=== PATIENT | male | born 1960 | race American Indian/Alaskan Native ===

== ENCOUNTER 2018-11-25 06:33 | Day surgery (SDC) | payer MEDICARE, MEDICAID ==
[~2018-11-25 06:33] MED LIST: Dextrose 5%-0.45% NaCl 1,000 ML IV SCH; Midazolam 1 MG/ML 2 ML SDV ONE; fentaNYL 100 MCG/2 ML SDV ONE
[2018-11-25] MEDS ORDERED: fentaNYL 100 MCG/2 ML SDV IV ONE ×3 (06:34→07:09)
[2018-11-25] MEDS ORDERED: Midazolam 1 MG/ML 2 ML SDV IV ONE ×6 (06:34→07:14)
[2018-11-25] MEDS ORDERED: Sodium Chloride 0.9% 10 ML Syringe FLUSH PRN (07:08)
[2018-11-25 10:44] VITALS: BP 116/73
--- NOTE | 2018-11-25 13:46 | OR ---
DATE: 11/25/2018 PROCEDURES: Total colonoscopy and cold snare polypectomy. INSTRUMENT USED: PCF-H190DL Olympus video colonoscope. PREMEDICATIONS: Fentanyl 100 mcg intravenous and Versed 4 mg intravenous. Nasal O2 cannula. The procedure was done under pulse oximetry, BP recording, and ekg monitor tech. INDICATION: The patient with previous colonic adenoma. Surveillance colonoscopic examination is done for detection of any polypoid lesions and removal, endoscopic hemostasis therapy if needed. DESCRIPTION OF PROCEDURE: Initial rectal exam showed some diffuse tenderness. Rigid anoscopy showed small internal hemorrhoids without bleeding from them. The colonoscope was passed with ease. Scattered diverticula were noted in the distal left colon along with some deformity. The scope was passed with ease up to the ileocecal area. Photographs were taken of the cecum showing diminutive benign-appearing polyp, cold snare polypectomy was done, the tissue was retrieved and sent for histopathology. No bleeding was noted from any of the visualized areas at the commencement of the examination. There was some amount of fecal material that had to be aspirated. Bowel preparation score, Florence scale 2. No stricture. No vascular ectasia. No large isolated ulceration seen. No evidence of diffuse inflammatory bowel disease in the form of friability, contact bleeding, or ulcerations. Probing the proximal sides of folds and flexures, using adequate distention and clearing up the stool material, withdrawal of the scope was made. [id number] time over 6 minutes. No bleeding was noted from any of the visualized areas at the completion of examination. IMPRESSION: 1. Internal hemorrhoids. 2. Diverticulosis. 3. Diminutive cecal polyp. The patient tolerated the procedure well. [facility] /[id number]
--- NOTE | 2018-11-26 08:30 | LETTER ---
11/25/2018 Trina Be MD [facility] [address] [place] [address] RE: RACHELLEJOSE : [address] Be: Mr. Jose Herbert Aggarwal had colonoscopic examination done this morning and he tolerated the procedure well. I herewith send a copy of the endoscopy note and photographs for your review. Thank you. Sincerely, [facility] /[id number]
== END 2018-11-25 09:40 | disposition home or self-care (01) ==
LOC: DL.ENDO 06:33
PROVIDERS: ATTEND Internal Medicine Gastroenterology
DX: Z12.11 Encounter for screening for malignant neoplasm of colon (principal); D12.0 Benign neoplasm of cecum; K64.8 Other hemorrhoids; K57.30 Diverticulosis of large intestine without perforation or abscess without bleeding; I10 Essential (primary) hypertension; E66.09 Other obesity due to excess calories; E78.5 Hyperlipidemia, unspecified
CPT/HCPCS: J2250; J3010; J7042

== ENCOUNTER 2020-11-16 01:45 | Emergency (ER) | payer MEDICARE, MEDICAID ==
[2020-11-16] MEDS ORDERED: Aspirin 81 MG Tab.Chew PO ONE (01:54)
[2020-11-16] MEDS ORDERED: Ondansetron 4 MG/2 ML SDV IVPUSH ONE (02:05)
--- NOTE | 2020-11-16 02:11 | EDM.PDOC ---
ED HPI GENERAL MEDICAL PROBLEM - General Stated Complaint: CHEST PAIN Time Seen by Provider: 11/16/20 02:00 Source of Information: Reports: Patient, RN History Limitations: Reports: No Limitations - History of Present Illness INITIAL COMMENTS - FREE TEXT/NARRATIVE: ED with c/o waking with chest pressure x 1 hour. Worse with movement. Denies fever, has had cold recently, loose cough, reports as chronic, Smoker. Past hx stent x 3. No sweating. No radiation of pain. Feels SOB. Etoh yesterday. nausea, no emesis. Received first COVID vaccine on 11/01/20. Mid-Sternal Chest Pain Score (Numeric/FACES): 6 - Related Data Allergies Allergy/AdvReac Type Severity Reaction Status Date / Time codeine Allergy Vomiting Verified 12/12/18 22:39 peach Allergy Swelling Verified 12/12/18 22:39 tramadol Allergy Dizziness Verified 12/12/18 22:39 Home Meds: Home Meds Aspirin [Ecotrin] 81 mg PO DAILY 11/03/13 [History] Atenolol [Tenormin] 50 mg PO BID 11/03/13 [History] Clotrimazole [Lotrimin AF 1% Crm] 30 gm TOP ASDIRECTED PRN 11/03/13 [History] Docusate Sodium [Colace] 100 mg PO BID PRN 11/03/13 [History] Famotidine [Pepcid] 20 mg PO BID 11/03/13 [History] metFORMIN [Glucophage] 1,000 mg PO BIDMEALS 11/03/13 [History] Acetaminophen 650 mg PO Q6HR PRN 08/12/14 [History] Albuterol Sulfate [Proair Hfa] 1 - 2 puff INH Q6HR PRN 08/20/17 [History] Loratadine 10 mg PO ASDIRECTED 08/20/17 [History] Losartan [Cozaar] 100 mg PO DAILY 08/20/17 [History] Tiotropium [Spiriva HandiHaler] 1 cap INH DAILY 08/20/17 [History] atorvaSTATin [Lipitor] 10 mg PO BEDTIME 08/20/17 [History] Tamsulosin [Flomax] 0.8 mg PO BEDTIME 08/21/17 [History] hydroCHLOROthiazide [Hydrochlorothiazide] 50 mg PO DAILY 02/23/19 [History] Albuterol [Proventil Neb Soln] 3 ml INH Q6HR PRN 08/09/20 [History] Cholecalciferol (Vitamin D3) [Vitamin D3] 1,000 units PO DAILY 08/09/20 [History] Insulin Detemir [Levemir] 35 units INJECT BID 08/09/20 [History] Liraglutide [Victoza] 1.2 ml INJECT DAILY 08/09/20 [History] Westview-3/DHA/Epa/Fish Oil [Westview-3 Fish Oil 1,000 MG Sfgl] 1,000 mg PO DAILY 08/09/20 [History] DULoxetine [Cymbalta] 60 mg PO DAILY 08/10/20 [History] Empagliflozin [Jardiance] 25 mg PO DAILY 08/10/20 [History] Past Medical History HEENT History: Reports: Impaired Vision Other HEENT History: upper dentures. 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 ED EXAM, GENERAL - Physical Exam Exam: See Below Exam Limited By: No Limitations General Appearance: Alert, Anxious, Mild Distress, Moderate Distress (movement or light palpation of upper chest) Eye Exam: Bilateral Eye: EOMI Ears: Hearing Grossly Normal Nose: Normal Inspection Throat/Mouth: Normal Voice Head: Atraumatic, Normocephalic Neck: Normal Inspection Respiratory/Chest: No Respiratory Distress, Decreased Breath Sounds, Rhonchi (right when flat clears with HOB elevated) Cardiovascular: Normal Peripheral Pulses, Regular Rate, Rhythm. No: No Edema (1+) GI/Abdominal: Normal Bowel Sounds, Soft Back Exam: Normal Inspection Extremities: Normal Inspection Neurological: Alert, Oriented, Normal Cognition Psychiatric: Normal Affect, Anxious Skin Exam: Warm, Dry, Intact, Normal Color Course - Vital Signs Last Recorded V/S: Last Vital Signs Temp 98.7 F 11/16/20 02:02 Pulse 94 02/16/21 02:02 Resp 20 11/16/20 02:02 BP 107/62 11/16/20 02:54 Pulse Ox 94 L 11/16/20 02:02 - Orders/Labs/Meds Labs: Laboratory Tests 11/16/20 11/16/20 11/16/20 Range/Units 02:01 02:01 02:01 WBC 10.5 H (5.0-10.0) 10^3/uL RBC 4.90 (4.6-6.2) 10^6/uL Hgb 14.5 (14.0-18.0) g/dL Hct 43.1 (40.0-54.0) % MCV 88.0 (80-100) fL MCH 29.6 (27.0-34.0) pg MCHC 33.6 (33.0-35.0) g/dL Plt Count 217 (150-450) 10^3/uL Neut % (Auto) 64.4 (42.2-75.2) % Lymph % (Auto) 24.6 (20.5-50.1) % [place] % (Auto) 8.8 H (2-8) % Eos % (Auto) 1.7 (1.0-3.0) % Baso % (Auto) 0.5 (0.0-1.0) % Add Manual Diff Yes Neutrophils % (Manual) 65 (42-75) % Band Neutrophils % 2 % Lymphocytes % (Manual) 24 (20-50) % Monocytes % (Manual) 7 (2-8) % Eosinophils % (Manual) 2 (1-3) % PT (9.0-12.0) SEC INR (0.9-1.2) D-Dimer, Quantitative 179 (0-400) ng/mL Sodium 140 (136-145) mmol/L Potassium 3.4 L (3.5-5.1) mmol/L Chloride 100 (98-107) mmol/L Carbon Dioxide 28 (21-32) mmol/L Anion Gap 15.4 H (7-13) mEq/L BUN 14 (7-18) mg/dL Creatinine 0.91 (0.70-1.30) mg/dL Est Cr Clr Drug Dosing 86.90 mL/min Estimated GFR (MDRD) > 60 BUN/Creatinine Ratio 15.4 (No establ ref range) Glucose 167 H (74-99) mg/dL Lactic Acid (0.4-2.0) mmol/L Calcium 8.9 (8.5-10.1) mg/dL Total Bilirubin 0.3 (0.2-1.0) mg/dL AST 50 H (15-37) U/L ALT 53 (16-63) U/L Alkaline Phosphatase 49 (46-116) U/L Troponin I 0.245 H* (0.000-0.056) ng/mL C-Reactive Protein 2.3 H (0.0-0.9) mg/dL B-Natriuretic Peptide (0-100) pg/ml Total Protein 7.4 (6.4-8.2) g/dL Albumin 3.1 L (3.4-5.0) g/dL Globulin 4.3 Albumin/Globulin Ratio 0.72 Amylase 32 (25-115) U/L Lipase 121 (73-393) U/L Ethyl Alcohol 17 (0) mg/dL Influenza Type A RNA (NEGATIVE) Influenza Type B RNA (NEGATIVE) SARS-CoV-2 RNA (PIETER) (NEGATIVE) 11/16/20 11/16/20 11/16/20 Range/Units 02:01 02:01 02:01 WBC (5.0-10.0) 10^3/uL RBC (4.6-6.2) 10^6/uL Hgb (14.0-18.0) g/dL Hct (40.0-54.0) % MCV (80-100) fL MCH (27.0-34.0) pg MCHC (33.0-35.0) g/dL Plt Count (150-450) 10^3/uL Neut % (Auto) (42.2-75.2) % Lymph % (Auto) (20.5-50.1) % [place] % (Auto) (2-8) % Eos % (Auto) (1.0-3.0) % Baso % (Auto) (0.0-1.0) % Add Manual Diff Neutrophils % (Manual) (42-75) % Band Neutrophils % % Lymphocytes % (Manual) (20-50) % Monocytes % (Manual) (2-8) % Eosinophils % (Manual) (1-3) % PT 9.4 (9.0-12.0) SEC INR 1.0 (0.9-1.2) D-Dimer, Quantitative (0-400) ng/mL Sodium (136-145) mmol/L Potassium (3.5-5.1) mmol/L Chloride (98-107) mmol/L Carbon Dioxide (21-32) mmol/L Anion Gap (7-13) mEq/L BUN (7-18) mg/dL Creatinine (0.70-1.30) mg/dL Est Cr Clr Drug Dosing mL/min Estimated GFR (MDRD) BUN/Creatinine Ratio (No establ ref range) Glucose (74-99) mg/dL Lactic Acid 2.8 H* (0.4-2.0) mmol/L Calcium (8.5-10.1) mg/dL Total Bilirubin (0.2-1.0) mg/dL AST (15-37) U/L ALT (16-63) U/L Alkaline Phosphatase (46-116) U/L Troponin I (0.000-0.056) ng/mL C-Reactive Protein (0.0-0.9) mg/dL B-Natriuretic Peptide 63 (0-100) pg/ml Total Protein (6.4-8.2) g/dL Albumin (3.4-5.0) g/dL Globulin Albumin/Globulin Ratio Amylase (25-115) U/L Lipase (73-393) U/L Ethyl Alcohol (0) mg/dL Influenza Type A RNA (NEGATIVE) Influenza Type B RNA (NEGATIVE) SARS-CoV-2 RNA (PIETER) (NEGATIVE) 11/16/20 Range/Units 02:10 WBC (5.0-10.0) 10^3/uL RBC (4.6-6.2) 10^6/uL Hgb (14.0-18.0) g/dL Hct (40.0-54.0) % MCV (80-100) fL MCH (27.0-34.0) pg MCHC (33.0-35.0) g/dL Plt Count (150-450) 10^3/uL Neut % (Auto) (42.2-75.2) % Lymph % (Auto) (20.5-50.1) % [place] % (Auto) (2-8) % Eos % (Auto) (1.0-3.0) % Baso % (Auto) (0.0-1.0) % Add Manual Diff Neutrophils % (Manual) (42-75) % Band Neutrophils % % Lymphocytes % (Manual) (20-50) % Monocytes % (Manual) (2-8) % Eosinophils % (Manual) (1-3) % PT (9.0-12.0) SEC INR (0.9-1.2) D-Dimer, Quantitative (0-400) ng/mL Sodium (136-145) mmol/L Potassium (3.5-5.1) mmol/L Chloride (98-107) mmol/L Carbon Dioxide (21-32) mmol/L Anion Gap (7-13) mEq/L BUN (7-18) mg/dL Creatinine (0.70-1.30) mg/dL Est Cr Clr Drug Dosing mL/min Estimated GFR (MDRD) BUN/Creatinine Ratio (No establ ref range) Glucose (74-99) mg/dL Lactic Acid (0.4-2.0) mmol/L Calcium (8.5-10.1) mg/dL Total Bilirubin (0.2-1.0) mg/dL AST (15-37) U/L ALT (16-63) U/L Alkaline Phosphatase (46-116) U/L Troponin I (0.000-0.056) ng/mL C-Reactive Protein (0.0-0.9) mg/dL B-Natriuretic Peptide (0-100) pg/ml Total Protein (6.4-8.2) g/dL Albumin (3.4-5.0) g/dL Globulin Albumin/Globulin Ratio Amylase (25-115) U/L Lipase (73-393) U/L Ethyl Alcohol (0) mg/dL Influenza Type A RNA Negative (NEGATIVE) Influenza Type B RNA Negative (NEGATIVE) SARS-CoV-2 RNA (PIETER) Negative (NEGATIVE) Meds: Medications Discontinued Medications Generic Name Dose Route Start Last Admin Trade Name Freq PRN Reason Stop Dose Admin Aspirin 324 mg 11/16/20 01:54 11/16/20 02:26 Aspirin PO 11/16/20 01:55 324 mg ONETIME ONE Administration Clopidogrel Bisulfate 300 mg 11/16/20 02:54 11/16/20 02:57 Plavix PO 11/16/20 02:55 300 mg ONETIME ONE Administration Heparin Sodium (Porcine) 4,000 units 11/16/20 02:54 11/16/20 03:03 Heparin Sodium IVPUSH 11/16/20 02:55 4,000 units .BOLUS ONE Administration Sodium Chloride 1,000 mls @ 25 mls/hr 11/16/20 02:37 11/16/20 02:41 Normal Saline IV 11/17/20 18:36 25 mls/hr .BOLUS ONE Administration Heparin Sodium/Sodium Chloride 25,000 units in 500 mls @ 31.701 mls/hr 11/16/20 03:00 11/16/20 03:03 Heparin 25,000 Units In 1/2 Ns 500 Ml IV 12 units/kg/hr TITRATE CECY 31.701 mls/hr Administration Protocol 12 UNITS/KG/HR Nitroglycerin 0.4 mg 11/16/20 02:37 11/16/20 02:43 Nitrostat SL 11/16/20 02:38 0.4 mg ONETIME ONE Administration Nitroglycerin 0.4 mg 11/16/20 02:49 11/16/20 02:54 Nitrostat SL 11/16/20 02:50 0.4 mg ONETIME ONE Administration Ondansetron HCl 4 mg 11/16/20 02:05 11/16/20 02:30 Zofran IVPUSH 11/16/20 02:06 4 mg ONETIME ONE Administration - Re-Assessments/Exams Free Text/Narrative Re-Assessment/Exam: 11/16/20 02:59 Anterior chest pain improving with Nitro 10/10 to 4-5/[address] Troy Palmer. Accepting patient . Tx via [facility]. Departure - Departure Time of Disposition: 03:30 Disposition: DC/Tfer to Acute Hospital 02 Reason for Transfer *Q: Other Condition: Fair Clinical Impression: NSTEMI (non-ST elevated myocardial infarction), History of CVA (cerebrovascular accident), IDDM (insulin dependent diabetes mellitus), Hx of Saldivar's palsy, CVD (cardiovascular disease), Hx of heart artery stent Forms: ED Department Discharge
[2020-11-16 02:13] VITALS: PULSE 94
[2020-11-16 02:33] LABS: ANION GAP 15.4 mEq/L (7-13); CHLORIDE,CL 100 mmol/L (98-107); SODIUM,NA 140 mmol/L (136-145)
--- NOTE | 2020-11-16 02:36 | CR ---
PROCEDURE INFORMATION: Exam: XR Chest, 1 View Exam date and time: 11/16/2020 2:16 AM Age: 60 years old Clinical indication: Chest pain TECHNIQUE: Imaging protocol: XR of the chest Views: 1 view. COMPARISON: No relevant prior studies available. FINDINGS: Lungs: Unremarkable. No consolidation. Pleural spaces: Unremarkable. No pleural effusion. No pneumothorax. Heart/Mediastinum: Unremarkable. No cardiomegaly. Bones/joints: Unremarkable. IMPRESSION: No acute findings.
[2020-11-16] MEDS ORDERED: Nitroglycerin 0.4 MG Tab.SL SL ONE ×2 (02:37→02:49)
[2020-11-16] MEDS ORDERED: Sodium Chloride 0.9% 1,000 ML IV ONE (02:37)
[2020-11-16] MEDS ORDERED: Heparin Sodium 5,000 Units/ML Vial IVPUSH ONE (02:54)
[2020-11-16] MEDS ORDERED: Clopidogrel 75 MG Tab PO ONE (02:54)
[2020-11-16 02:55] VITALS: BP 107/62
[2020-11-16 02:56] LABS: CORONAVIRUS COVID-19 NAA NEGATIVE (NEGATIVE)
[2020-11-16] MEDS ORDERED: Heparin Sodium/0.45% NaCl 25,000 UNITS/500 ML BAG IV SCH (03:00)
== END 2020-11-16 03:32 ==
LOC: DL.ED 01:45
DX: I21.4 Non-ST elevation (NSTEMI) myocardial infarction (principal); I25.10 Atherosclerotic heart disease of native coronary artery without angina pectoris; E11.9 Type 2 diabetes mellitus without complications; I10 Essential (primary) hypertension; F17.200 Nicotine dependence, unspecified, uncomplicated; Z86.73 Personal history of transient ischemic attack (TIA), and cerebral infarction without residual deficits; Z95.5 Presence of coronary angioplasty implant and graft; Z79.4 Long term (current) use of insulin; Z79.899 Other long term (current) drug therapy; Z88.5 Allergy status to narcotic agent; Z91.018 Allergy to other foods; Z20.822 Contact with and (suspected) exposure to COVID-19
CPT/HCPCS: 0240U; 36415; 71045; 80053; 80307; 82150; 83605; 83690; 83880; 84484; 85025; 85379; 85610; 86140; 87040; 93005; 96365; 96375; 99285; A9270; J1644; J2405; J7030

== ENCOUNTER 2023-05-11 13:21 | Emergency (ER) | payer MEDICARE, MEDICAID ==
[~2023-05-11 13:21] MED LIST changes: -Dextrose 5%-0.45% NaCl 1,000 ML IV SCH; -Midazolam 1 MG/ML 2 ML SDV ONE; +Sodium Chloride 0.9% 10 ML Syringe FLUSH PRN; -fentaNYL 100 MCG/2 ML SDV ONE
[2023-05-11 13:32] LABS: BASOPHILS PERCENT AUTO 0.3 % (0.0-1.0); EOSINOPHILS PERCENT AUTO 2.8 % (1.0-3.0); HEMOGLOBIN 14.8 g/dL (14.0-18.0); LYMPHOCYTES PERCENT AUTO 15.3 % (20.5-50.1); MEAN CORPUSCULAR HEMOGLOBIN 27.5 pg (27.0-34.0); MEAN CORPUSCULAR HGB CONC 32.2 g/dL (33.0-35.0); MEAN CORPUSCULAR VOLUME 85.5 fL (80-100); MONOCYTES PERCENT AUTO 6.6 % (2-8); PLATELET COUNT,PLT 215 10^3/uL (150-450); RED BLOOD CELL COUNT 5.38 10^6/uL (4.6-6.2); WHITE BLOOD CELL COUNT,WBC 11.6 10^3/uL (5.0-10.0)
[2023-05-11 13:51] LABS: C-REACTIVE PROTEIN 7.2 mg/dL (0.0-0.9); MAGNESIUM 2.2 mg/dL (1.8-2.4)
[2023-05-11 13:59] LABS: A/G RATIO 0.7; ALBUMIN 3.3 g/dL (3.4-5.0); ANION GAP 14.1 mEq/L (7-13); B-TYPE NATRIURETIC PEPTIDE,BNP 65 pg/ml (0-100); BILIRUBIN TOTAL 0.6 mg/dL (0.2-1.0); BUN/CREATININE RATIO 14.6 (No establ ref range); CALCIUM 8.8 mg/dL (8.5-10.1); CREATININE 0.96 mg/dL (0.70-1.30); EST CRCL DRUG DOSING (CG) 86.7 mL/min; LACTIC ACID 0.5 mmol/L (0.4-2.0); POTASSIUM,K 4.1 mmol/L (3.5-5.1)
[2023-05-11 14:06] LABS: INR 0.9 (0.9-1.2); PROTHROMBIN TIME 9.1 SEC (9.0-12.0); PTT,PARTIAL THROMBOPLSTIN TIME 24.3 SEC (22.0-34.0)
[2023-05-11 15:21] VITALS: BP 116/77; PULSE 77
== END 2023-05-11 15:15 | disposition home or self-care (01) ==
LOC: DL.ED 13:21
DX: J18.9 Pneumonia, unspecified organism (principal); E11.9 Type 2 diabetes mellitus without complications; I10 Essential (primary) hypertension; Z79.899 Other long term (current) drug therapy; Z88.5 Allergy status to narcotic agent; Z91.018 Allergy to other foods; Z79.82 Long term (current) use of aspirin; Z79.4 Long term (current) use of insulin; Z79.02 Long term (current) use of antithrombotics/antiplatelets; Z20.822 Contact with and (suspected) exposure to COVID-19
CPT/HCPCS: 36415; 71045; 80053; 83605; 83735; 83880; 84145; 84484; 85025; 85610; 85730; 86140; 87081; 87430; 87804; 93005; 93010; 99284; 99285; U0002

== ENCOUNTER 2023-09-25 07:40 | Emergency (ER) | payer MEDICARE, MEDICAID, OTHER ==
[2023-09-25 07:40] LABS: BASOPHILS PERCENT AUTO 0.1 % (0.0-1.0); EOSINOPHILS PERCENT AUTO 0.6 % (1.0-3.0); HEMOGLOBIN 15.1 g/dL (14.0-18.0); LYMPHOCYTES PERCENT AUTO 13.4 % (20.5-50.1); MEAN CORPUSCULAR HEMOGLOBIN 27.2 pg (27.0-34.0); MEAN CORPUSCULAR HGB CONC 31.5 g/dL (33.0-35.0); MEAN CORPUSCULAR VOLUME 86.3 fL (80-100); MONOCYTES PERCENT AUTO 18.6 % (2-8); NEUTROPHILS PERCENT AUTO 67.3 % (42.2-75.2); PLATELET COUNT,PLT 157 10^3/uL (150-450); RED BLOOD CELL COUNT 5.56 10^6/uL (4.6-6.2); WHITE BLOOD CELL COUNT,WBC 6.7 10^3/uL (5.0-10.0)
[2023-09-25 08:03] LABS: ALBUMIN 3.2 g/dL (3.4-5.0); ANION GAP 12.6 mEq/L (7-13); BILIRUBIN TOTAL 0.6 mg/dL (0.2-1.0); BUN/CREATININE RATIO 13.2 (No establ ref range); C-REACTIVE PROTEIN 5.68 ng/dL (<=0.50); CALCIUM 8.4 mg/dL (8.5-10.1); CREATININE 1.21 mg/dL (0.70-1.30); EST CRCL DRUG DOSING (CG) 68.78 mL/min; POTASSIUM,K 3.6 mmol/L (3.5-5.1); PROTEIN TOTAL,TP 7.7 g/dL (6.4-8.2)
[2023-09-25 08:06] LABS: LACTIC ACID 1.3 mmol/L (0.4-2.0)
[2023-09-25 08:15] LABS: A/G RATIO 0.71
[2023-09-25 08:35] LABS: INFLUENZA A NAA NEGATIVE (NEGATIVE); INFLUENZA B NAA NEGATIVE (NEGATIVE)
[2023-09-25 08:37] LABS: CORONAVIRUS COVID-19 NAA POSITIVE (NEGATIVE)
[2023-09-25 09:08] VITALS: BP 126/54; PULSE 98
== END 2023-09-25 08:55 | disposition home or self-care (01) ==
LOC: DL.ED 07:40
DX: U07.1 COVID-19 (principal); E11.9 Type 2 diabetes mellitus without complications; I10 Essential (primary) hypertension; Z95.5 Presence of coronary angioplasty implant and graft; Z79.82 Long term (current) use of aspirin; Z79.4 Long term (current) use of insulin; Z79.899 Other long term (current) drug therapy; Z88.5 Allergy status to narcotic agent; Z91.048 Other nonmedicinal substance allergy status
CPT/HCPCS: 0240U; 36415; 71046; 80053; 83605; 83735; 84484; 85025; 86140; 93005; 99285; J3490

== ENCOUNTER 2025-07-26 16:50 | Emergency (ER) | payer MEDICARE, MEDICAID ==
[2025-07-26] MEDS ORDERED: Sodium Chloride 0.9% 10 ML Syringe FLUSH PRN (16:59)
[2025-07-26 17:05] LABS: PLATELET COUNT,PLT 214.0 10^3/uL (150-450); RED BLOOD CELL COUNT 5.59 10^6/uL (4.6-6.2); WHITE BLOOD CELL COUNT,WBC 10.2 10^3/uL (5.0-10.0)
[2025-07-26 17:22] LABS: INR 0.9 (0.9-1.2); PTT,PARTIAL THROMBOPLSTIN TIME 24.6 SEC (22.0-34.0)
[2025-07-26 17:27] LABS: A/G RATIO 0.77; ALANINE AMINOTRANSFERASE,ALT 27 U/L (16-63); ASPARTATE AMNIOTRANSFERASE,AST 20 U/L (15-37); BILIRUBIN TOTAL 0.3 mg/dL (0.2-1.0); BLOOD UREA NITROGEN,BUN 14 mg/dL (7-18); CARBON DIOXIDE,CO2 34 mmol/L (21-32); CHLORIDE,CL 104 mmol/L (98-107); CREATININE 0.97 mg/dL (0.70-1.30); ESTIMATED GFR 86 mL/min (>=60); GLUCOSE RANDOM 121 mg/dL (70-99); POTASSIUM,K 3.8 mmol/L (3.5-5.1); PROTEIN TOTAL,TP 7.6 g/dL (6.4-8.2); SODIUM,NA 145 mmol/L (136-145)
[2025-07-26] MEDS: Iopamidol 755 Mg/ML 100 ML Bottle IVPUSH ONE (17:37)
[2025-07-26 18:11] VITALS: BP 143/86; PULSE 83
== END 2025-07-26 18:27 ==
LOC: DL.ED 16:50
DX: R29.810 Facial weakness (principal); I10 Essential (primary) hypertension; E11.9 Type 2 diabetes mellitus without complications; E66.01 Morbid (severe) obesity due to excess calories; Z68.41 Body mass index [BMI] 40.0-44.9, adult; Z88.5 Allergy status to narcotic agent; Z91.018 Allergy to other foods; Z79.82 Long term (current) use of aspirin; Z79.899 Other long term (current) drug therapy; Z79.4 Long term (current) use of insulin; Z79.84 Long term (current) use of oral hypoglycemic drugs
CPT/HCPCS: 36415; 70450; 70496; 70498; 71045; 80053; 82947; 84484; 85027; 85610; 85730; 86850; 86900; 86901; 93005; 99285; Q9967; 93010; 99291; 99292